=== PATIENT | male | born 1935 | race Two or more races ===

== ENCOUNTER 2019-06-04 05:15 | Inpatient (IN) | payer OTHER ==
[2019-05-30 15:31] LABS: BASOPHILS # (AUTO) 0.1 (0.0-0.1); BASOPHILS % 0.8 % (0.0-1.0); EOSINOPHILS # (AUTO) 0.2 (0.0-0.4); HEMATOCRIT 38.5 % (38.2-49.6); HEMOGLOBIN 12.5 g/dL (14.0-18.0); LYMPHOCYTES # (AUTO) 2.6 (1.0-3.2); LYMPHOCYTES % 33.4 % (18.0-39.1); MEAN CORPUSCULAR HEMOGLOBIN 29.3 pg (28-32); MEAN CORPUSCULAR HGB CONC 32.5 g/dL (31-35); MEAN CORPUSCULAR VOLUME 90.4 fL (81-99); MONOCYTES # (AUTO) 0.6 (0.2-0.8); MONOCYTES % 7.5 % (4.4-11.3); NEUTROPHILS # (AUTO) 4.3 (2.1-6.9); NEUTROPHILS % 54.9 % (38.7-80.0); PLATELET COUNT 246 x10e3/uL (140-360); RED BLOOD COUNT 4.26 x10e6/uL (4.3-5.7); RED CELL DISTRIBUTION WIDTH 13.7 % (11.7-14.4)
--- NOTE | 2019-05-30 15:44 | Diagnostic Imaging Report ---
EXAMINATION: CHEST 2 VIEWS INDICATION: Pre-operative COMPARISON: None FINDINGS: LINES/TUBES:None LUNGS:The lungs are mildly hyperinflated. No focal consolidation or pulmonary edema. PLEURA:No pleural effusion or pneumothorax. MEDIASTINUM:The cardiomediastinal silhouette appears normal in size and shape. Atherosclerotic calcifications of the thoracic aorta. BONES/SOFT TISSUES:No acute osseous injury. Mild degenerative changes of the visualized spine. ABDOMEN:No free air under the diaphragm. IMPRESSION: No focal pneumonia or pulmonary edema. Signed by: Murali Arguelles MD on 05/30/2019 3:41 PM
[2019-05-30 15:45] LABS: ANION GAP 17.4 mmol/L (8-16); BLOOD UREA NITROGEN 15 mg/dL (7-26); BUN/CREATININE RATIO 18 (6-25); CALCIUM 9.7 mg/dL (8.4-10.2); CARBON DIOXIDE 25 mmol/L (22-29); CHLORIDE 98 mmol/L (98-107); CREATININE, SERUM 0.85 mg/dL (0.72-1.25); EST GLOMERULAR FILTRATION RATE > 60 ML/MIN (60-); GLUCOSE 163 mg/dL (74-118); POTASSIUM 4.4 mmol/L (3.5-5.1); SODIUM 136 mmol/L (136-145)
[~2019-06-04] VITALS: Ht 165.1 cm; Wt 65.3 kg
[~2019-06-04 05:15] MED LIST: AMLODIPINE BESYL5 MG PO; CLOPIDOGREL75 MG PO; DORZOLAMIDE HCL10 ML OU; FERROUS SULFAT324 MG PO; LACTULOSE20 GM/30 M PO; LEVOTHYROXINE25 MCG PO; MULTI-VITAMIN1 EACH PO
--- OUTSIDE RECORDS SUMMARY | 2019-06-04 06:10 | XMS REPORT ---
Author [facility] Address Unknown Phone Unavailable Care Team Providers Care Social And Political Studies Professor Name Role Phone DANE IBARRA Unavailable Unavailable Problems This patient has no known problems. Allergies, Adverse Reactions, Alerts This patient has no known allergies or adverse reactions. Medications This patient has no known medications. Results Test Description Test Time Test Comments Text Results Atomic Results Result Comments CHEST 2 VIEWS 2019-05-30 15:40:00 [place] [address] Patient Name: WEI AGUILAR MR #: [id number] : 1935 Age/Sex: 83/M Req #: [id number] Adm Physician: Ordered by: DANE IBARRA MD Report #: [id number] Location: OR Room/Bed: Procedure: [id number] DX/CHEST 2 VIEWS Exam Date: 05/30/19 Exam Time: 1515 REPORT STATUS: Signed EXAMINATION: CHEST 2 VIEWS INDICATION: Pre-operative COMPARISON: None FINDINGS: LINES/TUBES:None LUNGS:The lungs are mildly hyperinflated. No focal consolidation or pulmonary edema. PLEURA:No pleural effusion or pneumothorax. MEDIASTINUM:The cardiomediastinal silhouette appears normal in size and shape. Atherosclerotic calcifications of the thoracic aorta. BONES/SOFT TISSUES:No acute osseous injury. Mild degenerative changes of the visualized spine. ABDOMEN:No free air under the diaphragm. IMPRESSION: No focal pneumonia or pulmonary edema. Signed by: Lucila Arguelles MD on 05/30/2019 3:41 PM Dictated By: LUCILA ARGUELLES MD [id number] Transcribed By: NIR on 05/30/191540 COPY TO: DANE IBARRA MD
[2019-06-04] MEDS ORDERED: CEFTRIAXONE SOD 1 GM/NS 50 ML 50 ML IV ONE (06:16)
[2019-06-04] MEDS ORDERED: GENTAMICIN 80MG/NS 100 ML 200 ML IV ONE (06:16)
[2019-06-04] MEDS ORDERED: IOPAMIDOL 300MG/ML 50ML INFUS..BTL IV ONE (06:47)
[2019-06-04] MEDS ORDERED: B&O 60MG R/S 60 MG SUPP PR ONE (06:47)
[2019-06-04] MEDS ORDERED: ACETAMINOPHEN/CODEINE 300MG - 30MG TAB PO PRN (09:15)
[2019-06-04] MEDS ORDERED: ONDANSETRON HCL INJ 2MG/ML 2ML 2 MG/ML VIAL IV PRN (09:15)
[2019-06-04] MEDS ORDERED: DIPHENHYDRAMINE HCL 25 MG CAP PO PRN (09:15)
[2019-06-04] MEDS ORDERED: B&O 60MG R/S 60 MG SUPP PR PRN (09:15)
--- NOTE | 2019-06-04 10:19 | NUR ---
RECEIVED REPORT FORM BROOKE IN PACU AWAITING FOR PT TO ARRIVE TO FLOOR
--- NOTE | 2019-06-04 10:40 | NUR ---
RECEIVED PT TO FLOOR AA0X3 PT IS IN NO S.S OF DISTRESS DENIES PAIN PT HAS A MO CATH DRAINING RED BLOOD. NO CLOTS NOTED WITH CBI PT HAS IV FLUIDS TO THE RIGHT HAND 20 PATENT AND DRY WILL CONTINUE TO MONITOR PT CLOSELY SIDE RAILSX2, BED WHEELS LOCKED, CALL LIGHT IS WITHIN EASY REACH, INSTRUCTED TO CALL FOR ASSISTANCE IF NEEDED
[2019-06-04 10:47] VITALS: BP 150/72
[2019-06-04 10:50] VITALS: BP 150/72
[2019-06-04] MEDS: D5.45%NS/KCL 20MEQ 1,000 ML IV SCH ×3 (11:05→19:06)
--- NOTE | 2019-06-04 11:14 | NUR ---
PAGERosa ORTIZ REGARDING PT ARRIVE TO FLOOR AND PT NEEDING HIS HOME MEDS STARTED AWAITING FOR CALL BACK
[2019-06-04 11:51] VITALS: BP 150/72
[2019-06-04] MEDS: PHENAZOPYRIDINE HCL 100 MG TAB PO SCH ×2 (12:15→17:11)
[2019-06-04 13:52] LABS: BASOPHILS # (AUTO) 0.1 (0.0-0.1); BASOPHILS % 0.4 % (0.0-1.0); EOSINOPHILS % 0.1 % (0.0-6.0); HEMATOCRIT 38.6 % (38.2-49.6); HEMOGLOBIN 12.2 g/dL (14.0-18.0); MEAN CORPUSCULAR HEMOGLOBIN 28.8 pg (28-32); MEAN CORPUSCULAR HGB CONC 31.6 g/dL (31-35); MEAN CORPUSCULAR VOLUME 91.3 fL (81-99); MONOCYTES # (AUTO) 0.8 (0.2-0.8); MONOCYTES % 5.8 % (4.4-11.3); NEUTROPHILS # (AUTO) 12.3 (2.1-6.9); NEUTROPHILS % 86.3 % (38.7-80.0); PLATELET COUNT 218 x10e3/uL (140-360); RED BLOOD COUNT 4.23 x10e6/uL (4.3-5.7); RED CELL DISTRIBUTION WIDTH 13.5 % (11.7-14.4)
[2019-06-04 14:09] LABS: ANION GAP 14.1 mmol/L (8-16); BLOOD UREA NITROGEN 13 mg/dL (7-26); BUN/CREATININE RATIO 15 (6-25); CALCIUM 8.7 mg/dL (8.4-10.2); CARBON DIOXIDE 26 mmol/L (22-29); CHLORIDE 99 mmol/L (98-107); CREATININE, SERUM 0.87 mg/dL (0.72-1.25); EST GLOMERULAR FILTRATION RATE > 60 ML/MIN (60-); GLUCOSE 169 mg/dL (74-118); POTASSIUM 4.1 mmol/L (3.5-5.1); SODIUM 135 mmol/L (136-145)
[2019-06-04 15:52] VITALS: BP 145/71
[2019-06-04] MEDS: DOCUSATE SODIUM 100 MG CAP PO SCH (17:11)
--- NOTE | 2019-06-04 17:46 | NUR ---
SPOKE WITH MD ORTIZ REGARDING HOME MED RENEWAL AND PT REQUEST FOR SLEEP MEDICATION TONIGHT NEW ORDERS RECEIVED
[2019-06-04] MEDS ORDERED: SEVOFLURANE INHAL SOLN 250 ML PEN BTL ONE (18:25)
[2019-06-04] MEDS ORDERED: ONDANSETRON HCL INJ 2MG/ML 2ML 2 MG/ML VIAL ONE (18:25)
[2019-06-04] MEDS ORDERED: LIDOCAINE HCL 2% LOCAL INJ 5 ML SDV VIAL INJ ONE (18:25)
[2019-06-04] MEDS ORDERED: PROPOFOL IV EMULSION 10 MG/ML 20 ML VIAL ONE (18:25)
--- NOTE | 2019-06-04 19:06 | NUR ---
WALKING ROUNDS PERFORMED, RECEIVED PT LAYING FOWLERS IN BED, AAOX3, RR EVEN AND NON-LABORED, ON ROOM AIR. NO S/SX OF DISTRESS NOTED. PT RECEIVING CBI, OM TO BEDSIDE BAG. LEFT PT LAYING SEMI FOWLERS IN BED, BED IN LOW LOCKED POSITION, SIDE RAILS UPX2, CALL LIGHT AND PHONE WITHIN REACH.
[2019-06-04] MEDS ORDERED: FENTANYL CITRATE/PF 100MCG/2 ML INJ ONE (19:22)
[2019-06-04 20:27] VITALS: BP 143/65
[2019-06-04] MEDS: TEMAZEPAM 7.5 MG CAP PO PRN (21:50)
[2019-06-04] MEDS: LACTULOSE SYRUP 20 GM/30 ML UDC PO SCH (21:50)
--- NOTE | 2019-06-04 21:50 | NUR ---
APPLIED STAT LOCK TO (R) THIGH TO KEEP MO IN PLACE.
[2019-06-04] MEDS: DORZOLAMIDE HCL (OPTH) 10 ML BOTTLE OP SCH (22:09)
[2019-06-05] VITALS (8 sets, daily range): BP systolic 111–148; BP diastolic 56–67
[2019-06-05] MEDS: D5.45%NS/KCL 20MEQ 1,000 ML IV SCH ×2 (03:03→11:26)
[2019-06-05 05:30] LABS: BASOPHILS % 0.4 % (0.0-1.0); EOSINOPHILS # (AUTO) 0.1 (0.0-0.4); EOSINOPHILS % 1.2 % (0.0-6.0); HEMATOCRIT 37.8 % (38.2-49.6); HEMOGLOBIN 11.9 g/dL (14.0-18.0); LYMPHOCYTES # (AUTO) 2.3 (1.0-3.2); LYMPHOCYTES % 22.3 % (18.0-39.1); MEAN CORPUSCULAR HGB CONC 31.5 g/dL (31-35); MEAN CORPUSCULAR VOLUME 92.2 fL (81-99); MONOCYTES # (AUTO) 1.1 (0.2-0.8); MONOCYTES % 10.5 % (4.4-11.3); NEUTROPHILS # (AUTO) 6.8 (2.1-6.9); NEUTROPHILS % 65.3 % (38.7-80.0); PLATELET COUNT 214 x10e3/uL (140-360); RED CELL DISTRIBUTION WIDTH 13.4 % (11.7-14.4)
[2019-06-05 05:42] LABS: ANION GAP 11.6 mmol/L (8-16); BLOOD UREA NITROGEN 9 mg/dL (7-26); BUN/CREATININE RATIO 10 (6-25); CALCIUM 8.4 mg/dL (8.4-10.2); CARBON DIOXIDE 25 mmol/L (22-29); CHLORIDE 106 mmol/L (98-107); CREATININE, SERUM 0.89 mg/dL (0.72-1.25); EST GLOMERULAR FILTRATION RATE > 60 ML/MIN (60-); GLUCOSE 119 mg/dL (74-118); POTASSIUM 4.6 mmol/L (3.5-5.1); SODIUM 138 mmol/L (136-145)
[2019-06-05] MEDS: LEVOTHYROXINE SODIUM 25 MCG TABLET PO SCH (06:00)
--- NOTE | 2019-06-05 07:00 | NUR ---
RECEIVED PATIENT RESTING IN BED NO S/S OF DISTRESS. BED LOW, WHEELS LOCKED, SIDE RAILS X2. CALL LIGHT IN REACH WILL CONTINUE TO MONITOR PATIENT.
[2019-06-05] MEDS: DOCUSATE SODIUM 100 MG CAP PO SCH ×2 (08:20→17:06)
[2019-06-05] MEDS: MULTIVITAMINS/MINERALS TAB PO SCH (08:20)
[2019-06-05] MEDS: DORZOLAMIDE HCL (OPTH) 10 ML BOTTLE OP SCH ×2 (08:20→17:00)
[2019-06-05] MEDS: AMLODIPINE BESYLATE 5 MG TAB PO SCH (08:20)
[2019-06-05] MEDS: PHENAZOPYRIDINE HCL 100 MG TAB PO SCH ×3 (08:20→17:06)
--- NOTE | 2019-06-05 10:05 | NUR ---
PATIENT A/O X3, EVEN RESPIRATIONS ON RA. LUNG SOUNDS CLEAR TO AUSCULTATION. PATIENT DENIES PAIN AT THIS TIME. RIGHT HAND 20 GAUGE IV WITH IVF @ 75 CC/HR. CARRILLO HOSE AND SCD'S BILATERALLY. MO WITH CBI, URINE CLEAR ORANGE. CALL LIGHT IN REACH WILL CONTINUE TO MONITOR PATIENT.
[2019-06-05] MEDS: CEFUROXIME AXETIL 250 MG TAB PO SCH ×2 (11:25→20:54)
[2019-06-05] MEDS: FERROUS SULFATE 325 MG TAB PO SCH (11:26)
--- NOTE | 2019-06-05 19:24 | NUR ---
SBAR report received at bedside patient awake alert, continue on CBI, urine seen orange tinged, no c/o pain or discomfort noted, spouse at bedside, skin warm dry, VSS, oriented to oncoming shift staff, call light within reach
[2019-06-05] MEDS: LACTULOSE SYRUP 20 GM/30 ML UDC PO SCH (20:54)
[2019-06-05] MEDS: TEMAZEPAM 7.5 MG CAP PO PRN (22:35)
[2019-06-06] VITALS (8 sets, daily range): BP systolic 117–156; BP diastolic 61–74
[2019-06-06] MEDS: D5.45%NS/KCL 20MEQ 1,000 ML IV SCH (02:44)
[2019-06-06] MEDS: LEVOTHYROXINE SODIUM 25 MCG TABLET PO SCH (05:12)
[2019-06-06 05:41] LABS: BASOPHILS % 0.4 % (0.0-1.0); EOSINOPHILS # (AUTO) 0.2 (0.0-0.4); EOSINOPHILS % 1.7 % (0.0-6.0); HEMOGLOBIN 11.5 g/dL (14.0-18.0); LYMPHOCYTES # (AUTO) 2.4 (1.0-3.2); LYMPHOCYTES % 21.7 % (18.0-39.1); MEAN CORPUSCULAR HEMOGLOBIN 28.9 pg (28-32); MEAN CORPUSCULAR HGB CONC 31.9 g/dL (31-35); MEAN CORPUSCULAR VOLUME 90.5 fL (81-99); MONOCYTES # (AUTO) 1.1 (0.2-0.8); MONOCYTES % 9.5 % (4.4-11.3); NEUTROPHILS # (AUTO) 7.4 (2.1-6.9); NEUTROPHILS % 66.3 % (38.7-80.0); PLATELET COUNT 198 x10e3/uL (140-360); RED BLOOD COUNT 3.98 x10e6/uL (4.3-5.7); RED CELL DISTRIBUTION WIDTH 13.4 % (11.7-14.4)
[2019-06-06 05:58] LABS: ANION GAP 12.3 mmol/L (8-16); BLOOD UREA NITROGEN 7 mg/dL (7-26); BUN/CREATININE RATIO 8 (6-25); CALCIUM 8.6 mg/dL (8.4-10.2); CARBON DIOXIDE 25 mmol/L (22-29); CHLORIDE 105 mmol/L (98-107); CREATININE, SERUM 0.87 mg/dL (0.72-1.25); EST GLOMERULAR FILTRATION RATE > 60 ML/MIN (60-); GLUCOSE 121 mg/dL (74-118); POTASSIUM 4.3 mmol/L (3.5-5.1); SODIUM 138 mmol/L (136-145)
[2019-06-06] MEDS: CEFUROXIME AXETIL 250 MG TAB PO SCH (09:58)
[2019-06-06] MEDS: DOCUSATE SODIUM 100 MG CAP PO SCH (09:58)
[2019-06-06] MEDS: MULTIVITAMINS/MINERALS TAB PO SCH (09:58)
[2019-06-06] MEDS: PHENAZOPYRIDINE HCL 100 MG TAB PO SCH (09:59)
[2019-06-06] MEDS: AMLODIPINE BESYLATE 5 MG TAB PO SCH (09:59)
[2019-06-06] MEDS: DORZOLAMIDE HCL (OPTH) 10 ML BOTTLE OP SCH (10:00)
[2019-06-06] MEDS ORDERED: ONDANSETRON HCL 4 MG ORAL DISINTEGRATING TAB PO PRN (10:45)
[2019-06-06] MEDS: FERROUS SULFATE 325 MG TAB PO SCH (11:58)
[2019-06-06] MEDS ORDERED: TEMAZEPAM 15 MG CAP PO PRN (15:45)
--- NOTE | 2019-07-17 04:16 | Operative Report ---
DATE OF PROCEDURE: 06/04/2019 SURGEON: Des Riddle MD PRESENT DIAGNOSES: 1. Obstructive benign prostatic hyperplasia. 2. Urinary tract infections. POSTOPERATIVE DIAGNOSES: 1. Obstructive benign prostatic hyperplasia. 2. Urinary tract infections. 3. Bladder stone. OPERATIONS PERFORMED: 1. Cystourethroscopy with cystolitholapaxy (separate procedure performed for the bladder stone). 2. Cystourethroscopy with bilateral ureteral catheterization and retrograde ureteropyelography (separate procedure performed for the urinary tract infections). 3. Interpretation of retrograde ureteropyelography. 4. Supervision of fluoroscopy, no radiologist present. 5. Cystourethroscopy with staged transurethral resection of the prostate utilizing the plasma button electrode. ANESTHESIA: General. COMPLICATIONS: None. CLINICAL SUMMARY: This patient is an 83-year-old man with the above preoperative diagnoses. He is brought for the above procedures. He and the family are well-versed in the indications and risks and benefits of this procedure. He understands the risks of bleeding, infection, injury to adjacent structures, incontinence, impotence, retrograde ejaculation, need for additional procedures, and they elected to proceed. OPERATIVE PROCEDURE IN DETAIL: Informed consent verified. This patient was properly identified taken to the operating room, placed on the cystoscopy table in supine position. Anesthesia was uneventfully begun. The patient was then carefully gently repositioned in dorsal lithotomy position with all pressure points well padded. His genitalia were prepared and draped in the usual sterile fashion. The cystoscope sheath with the visual obturator in place was atraumatically inserted into the patient's urethra, it was guided down the unremarkable urethra through the normal sphincteric region through the prostate bed, which was significant for a long prostatic urethra within the very large prostate with kissing lateral lobes and severe visual obstruction into the patient's bladder and drained it. Panendoscopy revealed a bladder stone and also revealed grade 2 trabeculations. No suspicious lesions were identified. An 8-Bolivian catheter was used to cannulate each ureter and retrograde ureteropyelograms were performed. Interpretation of retrograde ureteropyelography contrast was instilled in retrograde fashion bilaterally. In the upper tract, there were no stones, there were no tumors, there were no suspicious lesions, there were no hydronephrosis, and unobstructed drainage was observed fluoroscopically. Contrast was pooled in the bladder during retrograde pyelograms revealed a filling defect that corresponded to the stone. The grasping forceps was utilized to fragment the stone and extracted. The stone was sent for analysis. The cystoscope was withdrawn and resectoscope and a sheath was placed with the obturator without any complication and no difficulty. Transurethral resection of the prostate was then carried out from the bladder neck tube, but never passed the verumontanum using the plasma button electrode. Resection was carried out from the bladder neck to the verumontanum and down the surgical capsule. This was a very large prostate, it was also chronically inflamed. Prostatic secretions were noted to the exuded from the glandular tissue as we vaporized it. Once we reached the surgical capsule, pinpoint electrocautery was utilized to achieve the hemostasis. The resectoscope was then withdrawn. Ardon catheter was placed. It was irrigated to and fro to ensure it worked properly. It is placed in continuous bladder irrigation with relatively clear efflux. A belladonna and opium suppository were placed revealing a large prostate that is smooth, nonfluctuant without any nodules. The patient was then uneventfully reversed from anesthesia and taken to recovery room in stable condition. There were no complications to the procedure. He tolerated the procedure well. Explicit postop instructions were given. We will follow the patient up in the office following his hopefully routine hospital stay. Upon followup in the office, plans are for uroflowmetry and bladder ultrasonography to monitor his progress. Des Riddle MD [place]/NAYEL /[id number]
== END 2019-06-06 16:16 | disposition home or self-care (01) | DRG 713 ==
LOC: OR 05:15 → PACU V 09:12 → MED/SURG 10:27
PROVIDERS: ADMIT Internal Medicine; ATTEND Internal Medicine
PROC: BT141ZZ Fluoroscopy of Kidneys, Ureters and Bladder using Low Osmolar Contrast (ICD-10-PCS; 2019-06-04)
PROC: 0TCB8ZZ Extirpation of Matter from Bladder, Via Natural or Artificial Opening Endoscopic (ICD-10-PCS; principal; 2019-06-04 07:00)
PROC: 0VB08ZZ Excision of Prostate, Via Natural or Artificial Opening Endoscopic (ICD-10-PCS; 2019-06-04 07:00)
PROC: 0T788ZZ Dilation of Bilateral Ureters, Via Natural or Artificial Opening Endoscopic (ICD-10-PCS; 2019-06-04 07:00)
DX: N40.1 Benign prostatic hyperplasia with lower urinary tract symptoms (principal); N39.0 Urinary tract infection, site not specified; R33.8 Other retention of urine; I10 Essential (primary) hypertension; E78.5 Hyperlipidemia, unspecified; Z87.440 Personal history of urinary (tract) infections; E03.9 Hypothyroidism, unspecified; R73.03 Prediabetes; E78.00 Pure hypercholesterolemia, unspecified
CPT/HCPCS: 36415; 71046; 74420; 80048; 83735; 85025; 88300; 93005; C1758; J0696; J1580; J2001; J2405; J3010